=== PATIENT | male | born 1990 | race American Indian/Alaskan Native ===

== ENCOUNTER 2020-09-04 11:02 | Emergency (ER) | payer SELFPAY ==
[2020-09-04 12:34] VITALS: BP 122/89
--- NOTE | 2020-09-04 12:41 | Emergency Department Report ---
Chief Complaint: Upper Respiratory Infection Stated Complaint: FEELING SICK Time Seen by Provider: 09/04/20 12:13 - HPI History of Present Illness: 29-year-old -English male presents to the emergency room telling the triage nurse that he has been coughing for 2 weeks with no relief of NyQuil. When I interviewed patient he states that he is coming in because he is having penile discharge for a couple months. Patient denies any testicular swelling or pain. Patient reports he did not know where to go. Patient denies intercourse with men. He denies any fever chills no nausea no vomiting abdominal pain. - Exam Vital Signs: Vital Signs 09/04/20 09/04/20 11:13 12:31 Temperature 98.1 F Pulse Rate 59 L 88 Respiratory 16 19 Rate Blood Pressure 130/90 Blood Pressure 130/90 122/89 [Left] O2 Sat by Pulse 98 99 Oximetry Physical Exam: Patient is alert and oriented no acute distress nontoxic in appearance lying across the bench on cell phone Patient is in no respiratory distress breath are effortless Cardiac regular rate Back full range of motion Patient is ambulatory without difficulties MSE screening note: Focused history and physical exam performed. Due to findings the following was ordered: 29-year-old -English male presents to the emergency room telling the triage nurse that he has been coughing for 2 weeks with no relief of NyQuil. When I interviewed patient he states that he is coming in because he is having penile discharge for a couple months. Patient denies any testicular swelling or pain. Patient reports he did not know where to go. Patient denies intercourse with men. He denies any fever chills no nausea no vomiting abdominal pain. ED Disposition for MSE Disposition: DC-01 TO HOME OR SELFCARE Is pt being admited?: No Does the pt Need Aspirin: No Condition: Stable Instructions: Safe Sex Additional Instructions: Recommend to follow-up at the health department for full STD evaluation and treatment. Referrals: PRIMARY CARE, [Primary Care Provider] - 3-5 Days [facility] [Outside] - 3-5 Days [facility] [Outside] - 3-5 Days
--- NOTE | 2020-09-04 12:50 | Event Note ---
Face to Face: For this encounter I have reviewed the PA/[employer]PER documentation, treatment plan, medical decision making, and I had face to face time with this patient. I was asked by my colleague to speak with patient regarding treatment plan. It was deemed by my colleague that patient did not have a life limb organ threatening condition. From his presentation I agree with this assessment. Patient became irate and threatening during my discussion. I recommended evaluation in outpatient clinic setting or urgent care. He claimed discrimination and refusal of care. Medical screening exam performed and completed. Initial complaint was cough. After further history taking patient spoke of penile discharge.
== END 2020-09-04 13:00 | disposition home or self-care (01) ==
LOC: ED 11:02
DX: R05 Cough (principal)
CPT/HCPCS: 99282